=== PATIENT | female | born 1995 | race Caucasian/White ===

== ENCOUNTER 2019-11-30 22:39 | Emergency (ER) | payer OTHER, SELFPAY ==
[2019-11-30 22:50] VITALS: BP 141/96; PULSE 118; RESP 20; TEMP 36.6; O2SAT 100
--- NOTE | 2019-11-30 23:00 | RT.EKG_ITS ---
APPROVED REPORT Exam: Resting ECG Patient Location: E HR:103 bpm ECG Measurements Heart Rate 103 AXIS OH 128 P 60 QRSd 99 QRS 78 QT 335 T 45 QTc 438 Conclusion EKG 23: 17 Rate 103, sinus tachycardia, intervals normal, no significant ST elevation or depression, no evidence of prolonged QT syndrome, QRS prolongation or other abnormality.
[2019-11-30 23:14] LABS: BE (Venous) -5 mmol/L (-2-3); HCO3 (Venous) 20 mmol/L (23-28); O2 Sat (Venous) 82 %; TCO2 (Venous) 18 mmol/L (24-29); pCO2 (Venous) 35 mmHg (41-51); pH (Venous) 7.37 (7.31-7.41); pO2 (Venous) 45 mmHg
--- NOTE | 2019-11-30 23:14 | W.ED.GENAD ---
Discharge Plan Disposition Patient Disposition: HOME Condition: Good Discharge Details Chief Complaint: PsychEval Clinical Impression: Depression Primary Care Provider: [facility] Provider: Caden Downs Home Meds and New Rx's Prescriptions: No Action No Known Home Meds RF: 0 Discharge Instructions Instructions: Depression (ED) Additional Instructions: Your community mental health support team will contact you in the morning. If you have any concern of harming herself again please contact us or return immediately. If you notice any worsening of your symptoms, or any new symptoms such as vomiting, diarrhea, fever, chills, shortness of breath, chest pain, numbness, weakness, or fainting , please return immediately to the emergency department for reevaluation. Please follow up with your primary care provider as soon as possible for reassessment and reevaluation. As always, it was a pleasure participating in your medical care today. Medical Decision Making 22-year-old female presents today for suicidal ideations and overdose. Patient has a history of depression, previous self harming events in the past, patient states that over the last few days she has been more depressed than usual, she states that tonight she wanted to just feel and she felt that she needed to do something significant to be taken seriously her to be evaluated. She states that she took 34 to 40 200 mg ibuprofen slightly greater than an hour ago. She is not currently taking any other medications otherwise. She denies any other IV or illicit drugs or salicylates or other medications that she took tonight. She does state that she had a few cups of wine but that is all. She denies any vomiting. She denies any auditory or visual hallucinations. She denies any homicidal ideations. Currently she states that she regrets her decision, and wants to live. No other complaints at this time. She states specifically that she does not want us to inform others, states that she will do it on her own. She is open to admission. M demonstrates no hyperreflexia, no signs of serotonin syndrome, no signs of leadpipe rigidity. In the worse case scenario per patient history if she took 40 tablets of 200 mg ibuprofen could be about 8000 mg. We did contact poison control and discussed this with them, they do not recommend GI decontamination at this time. They did not recommend any adjunct therapy aside for monitoring, checking acid-base and renal status, and symptomatic management. Recommend Zofran if nausea occurs. They do recommend that if the patient is admitted that repeat acetaminophen and basic metabolic panel labs be drawn 4 hours after initial ingestion. No additional recommendations at this time. We will formulate a safety plan, get a one-to-one observer, contact mental health, monitor closely and reassess. 12:11 Laboratory work-up shows no severe acid-base abnormality, anion gap is only 12, renal function excellent. Remainder of work-up otherwise nonemergent and unremarkable. Acetaminophen and salicylate levels normal. Patient has been seen and assessed by [facility], at this time [facility] feels the patient safe to be discharged home, they have created a safety plan with the patient, and will be following up early tomorrow. I did discuss this with the patient, and she also agrees and feels comfortable with this plan. We will draw a repeat acetaminophen and basic metabolic panel level 4 hours after ingestion. If this is unremarkable and the patient will be medically cleared and safe for discharge. 2:14 AM 4-hour BMP and 4-hour acetaminophen level after ingestion both returned negative and unremarkable. Patient remained stable. She feels safe with the current plan. She will be following up promptly with [facility] tomorrow, she does have family and friends will be with her at this time. Patient is requesting discharge. I have extensively reviewed the treatment plan and discharge instructions with the patient. I have addressed all patient concerns at this time. The patient was made aware of what symptoms to monitor for that would warrant a return to the emergency department. Discussed the plan with the patient, they demonstrate verbal understanding and agreement with our assessment and plan at this time. EKG 23: 17 Rate 103, sinus tachycardia, intervals normal, no significant ST elevation or depression, no evidence of prolonged QT syndrome, QRS prolongation or other abnormality. HPI General Date/Time Provider Initiated Documentation: 11/30/19 22:54. HPI Narrative: 22-year-old female presents today for suicidal ideations and overdose. Patient has a history of depression, previous self harming events in the past, patient states that over the last few days she has been more depressed than usual, she states that tonight she wanted to just feel and she felt that she needed to do something significant to be taken seriously her to be evaluated. She states that she took 34 to 40 200 mg ibuprofen slightly greater than an hour ago. She is not currently taking any other medications otherwise. She denies any other IV or illicit drugs or salicylates or other medications that she took tonight. She does state that she had a few cups of wine but that is all. She denies any vomiting. She denies any auditory or visual hallucinations. She denies any homicidal ideations. Currently she states that she regrets her decision, and wants to live. No other complaints at this time. She states specifically that she does not want us to inform others, states that she will do it on her own. She is open to admission. Related Data Home Medications Medication Instructions Recorded Confirmed Unknown [No Known Home Meds] 11/30/19 11/30/19 Allergies Allergy/AdvReac Type Severity Reaction Status Date / Time No Known Allergies Allergy Unverified 11/30/19 23:01 General Stated Complaint: PsychEval JRAED: 2 Review of Systems All systems reviewed & are unremarkable except as noted in HPI and below PFSH Social History Smoking/Tobacco Use Status: Current every day Tobacco Type: cigarettes Alcohol Intake: current Alcohol Intake frequency: a few times a week Drug use: Occasionally Substance use type: does not use Do you feel safe in your relationship?: Yes Exam Narrative Exam Narrative: 1.Const: Well-nourished, Well-developed, appearing stated age 2.Eyes: PERRL, no conjunctival injection, and symmetrical lids. 3.ENT: Atraumatic external nose and ears. Moist MM. Neck: Symmetric, trachea midline, No thyromegaly. 4.CVS: +S1/S2, No murmurs or gallops. Peripheral pulses 2+ and equal in all extremities. Brisk capillary refill in all extremities. 5.RESP: Unlabored respiratory effort. Clear to auscultation bilaterally. No wheezes rales or rhonchi 6.GI: Soft, Nontender/Nondistended, No hepatosplenomegaly. No guarding or rebound. 7.MSK: Normocephalic/Atraumatic, Extremities w/o deformity or ttp No cyanosis or clubbing, Normal movement of all extremities 8.Skin: Warm, Dry. No rashes or lesions. Chronic well-healed very old scars on the patient's forearms bilaterally from self-inflicted cutting. 9.Neuro: tour guide II-XII grossly intact. Sensation grossly intact, no focal neurologic deficits. 10.Psych: (AAO) x3. Appropriate mood and affect Course Vital Signs Vital signs: Vital Signs Temperature 36.6 C 11/30/19 22:50 Pulse 118 H 11/30/19 22:50 Respiratory Rate 20 11/30/19 22:50 Blood Pressure 141/96 H 11/30/19 22:50 Pulse Oximetry 100 11/30/19 22:50 Temperature 36.6 C 11/30/19 22:50 Temperature Source Temporal Artery Scan 11/30/19 22:50 Pulse 118 H 11/30/19 22:50 Respiratory Rate 20 11/30/19 22:50 Respiratory Effort 11/30/19 22:54 Blood Pressure 141/96 H 11/30/19 22:50 Blood Pressure Position Sitting 11/30/19 22:50 Pulse Oximetry 100 11/30/19 22:50 Oxygen Delivery Method Room Air 11/30/19 22:50 Oxygen Flow Rate 0 11/30/19 22:50
[2019-11-30 23:15] LABS: Abs Immature Grans 0.04 10^3/uL (0.0-0.06); Absolute Eosinophil Count 0.06 10^3/uL (0.0-0.7); Absolute Lymphocyte Count 2.37 10^3/uL (1.2-3.4); Absolute Monocyte Count 0.65 10^3/uL (0.1-0.8); Basophils % 0.2; Eosinophils % 0.5; HCT 46.9 % (36.0-46.0); HGB 15.4 g/dL (11.2-15.7); Immature Grans % 0.3; Lymphocytes % 19.5; MCH 30.4 pg (27.0-33.0); MCHC 32.8 % (32.0-36.0); MCV 92.7 fL (80-95); MPV 9.6 fL (8.0-11.0); Monocytes % 5.3; Neutrophils % 74.2; Nucleated RBC 0 %; Platelet Count 354 10^3/uL (130-400); RBC 5.06 10^6/uL (3.93-5.22); RDW 12.5 % (11.7-14.6); RDW-SD 42.6 fL; WBC 12.17 10^3/uL (4.4-10.8)
[2019-11-30 23:16] LABS: Absolute Basophil Count 0.02 10^3/uL (0.0-0.2); Absolute Neutrophil Count 9.03 10^3/uL (1.2-6.7)
[2019-11-30 23:29] LABS: PTT Activated 24.2 sec (21.0-31.4); Prothrombin Time 10.3 sec (9.3-11.0)
[2019-11-30 23:43] LABS: ALT 16 U/L (14-59); AST 8 U/L (15-37); Albumin 4.3 g/dL (3.4-5.0); Alkaline Phosphatase 60 U/L (46-116); Anion Gap 12.1 mmol/L (3-11); BUN 6 mg/dL (7-18); Bilirubin, Total 0.3 mg/dL (0.2-1.0); CO2 20.9 mmol/L (21.0-32.0); CREATININE 0.79 mg/dL (0.55-1.02); Calcium 9.1 mg/dL (8.5-10.1); Chloride 103 mmol/L (98-107); ETHANOL BLOOD 7.3 mg/dL (<3); Glucose 99 mg/dL (74-106); Potassium 3.5 mmol/L (3.5-5.1); Sodium 136 mmol/L (136-145); Total Protein 8.1 g/dL (6.4-8.2)
[2019-11-30 23:45] LABS: Acetaminophen < 2 ug/mL (10-30); Salicylate < 2.8 mg/dL (2.8-20.0)
--- NOTE | 2019-11-30 23:48 | PDOC.MHCN ---
Date of service: 11/30/19 Time of Service: 23:23 Mental Health Crisis Note Presenting Issue How did you arrive at the ED and why did you come: Patient arrived at the ER due to taking 46 ibuprofen Precipitating Factors Patient shared that she took a bunch of pills, patient shared that he mother and sister take medication for depression and she feels that she may need to also. Patient denies previous attempts of SI. Patient shared that she used to cut herself, but has not in 5/6 years. Patient denies hallucinations. Patient denies current suicidal ideation. Patient stated I just need help Patient agreed to complete intake paperwork and is interested in meeting with a psychiatrist and getting a therapist. Disposition BEHAVIOR: cooperative EYE CONTACT: okay MOOD: calm AFFECT: flat APPETITE: Patient reports not eating very much SLEEP(trouble falling/staying asleep: Patient reports that she does not sleep well, mostly during the day instead of at night. Plan Patient will go home with her sister, whom will stay the night with her. Patient completed intake paperwork with verbal consent, agreed to come to the office tomorrow to sign in person. Patient agreed to check in calls, first one being tomorrow at 10 am. Patient intends to go home and get some sleep. Signature Clinician's Name/Title: Navdeep Fraga Emergency clinician
[2019-12-01 00:22] LABS: *AMPHETAMINES SCREEN URINE Negative (Negative); *BARBITURATES SCREEN URINE Negative (Negative); *BENZODIAZEPINES SCREEN URINE Negative (Negative); Cannabinoids THC Negative (Negative); Cocaine Screen,Urine Negative (Negative); METHADONE URINE SCREEN Negative (Negative); OPIATES URINE SCREEN Negative (Negative)
[2019-12-01 00:23] LABS: Tricyclic Antidepressants Negative (Negative)
[2019-12-01 01:42] VITALS: BP 121/77; PULSE 59; TEMP 36.2
[2019-12-01 02:05] LABS: Anion Gap 7.1 mmol/L (3-11); BUN 7 mg/dL (7-18); CO2 24.9 mmol/L (21.0-32.0); CREATININE 0.78 mg/dL (0.55-1.02); Calcium 9.1 mg/dL (8.5-10.1); Chloride 102 mmol/L (98-107); Glucose 88 mg/dL (74-106); Potassium 3.5 mmol/L (3.5-5.1); Sodium 134 mmol/L (136-145)
[2019-12-01 02:07] LABS: Acetaminophen < 2 ug/mL (10-30)
== END 2019-12-01 02:15 | disposition home or self-care (01) ==
LOC: ER 12-01 01:24
PROVIDERS: Emergency Provider Student in an Organized Health Care Education/Training Program
DX: F32.9 Major depressive disorder, single episode, unspecified (principal); T39.312A Poisoning by propionic acid derivatives, intentional self-harm, initial encounter
CPT/HCPCS: 36415; 80048; 80053; 80307; 81025; 82805; 93005; 99285; 36600; 80320; 80329; 84443; 85025; 85610; 85730; 93010; 99284